=== PATIENT | female | born 1995 | race Asian ===

== ENCOUNTER 2017-05-07 01:27 | Emergency (ER) | payer OTHER ==
[2017-05-07] MEDS ORDERED: NS 0.9% 1000 ML* 2,000 ML IV ONE (01:32)
[2017-05-07] MEDS ORDERED: Ondansetron INJ* 2 MG/ML VIAL IV ONE (01:32)
[2017-05-07 02:32] LABS: Hematocrit 38 % (35-47); Mean Corpuscular HGB Conc 35 g/dl (31-36); Mean Corpuscular Hemoglobin 31 pg (27-31); Mean Corpuscular Volume 89 fL (80-97); Mean Platelet Volume 7 um3 (7.4-10.4); Red Blood Count 4.26 10^6/ul (4.0-5.4); Red Cell Distribution Width 13 % (10.5-15); White Blood Count 6.2 10^3/ul (3.5-10.8)
[2017-05-07 02:42] LABS: ALT 7 U/L (7-52); AST 11 U/L (13-39); Albumin 4.6 g/dL (3.2-5.2); Alkaline Phosphatase 40 U/L (34-104); Anion Gap 9 mmol/L (2-11); BUN/Creatinine Ratio 21.4 (8-20); Blood Urea Nitrogen 12 mg/dL (6-24); CO2 Carbon Dioxide 25 mmol/L (22-32); Calcium 8.8 mg/dL (8.6-10.3); Chloride 105 mmol/L (101-111); EGFR African American 174.1 (>60); EGFR Non-African American 135.4 (>60); Globulin 2.5 g/dL (2-4); Glucose 114 mg/dL (70-100); Potassium 3.5 mmol/L (3.5-5.0); Sodium 139 mmol/L (133-145); Total Protein 7.1 g/dL (6.4-8.9)
[2017-05-07 02:43] LABS: Alcohol 213 mg/dL (<10)
--- NOTE | 2017-05-07 04:52 | ED ---
Curt Maldonado Rebecca, scribed for Angel Edgar on 05/07/17 at 0149 . Substance Abuse/Use - HPI Summary HPI Summary: Pt is a 21 y/o F BIBA who comes to ED p/w EtOH intoxication with N/V. EMS report she was vomiting upon their arrival to the scene. Level 5 caveat due to EtOH intoxication. - History Of Current Complaint Stated Complaint: ALCOHOL CONSUMPTION Time Seen by Provider: 05/07/17 01:34 Hx Obtained From: EMS Hx From Patient Unobtainable Due To: Other - EtOH intoxication Ingestion History: Type/Name Of Drug - EtOH Overdose Characteristics: Oral Timing Of Abuse: Binge Use Associated Signs And Symptoms: Nausea, Vomiting - Allergies/Home Medications Allergies/Adverse Reactions: Allergies Allergy/AdvReac Type Severity Reaction Status Date / Time No Known Allergies Allergy Verified 05/07/17 02:16 Home Medications: Home Medications NK [No Home Medications Reported] 05/07/17 [History Confirmed 05/07/17] PMH/Surg Hx/FS Hx/Imm Hx Previously Healthy: No - Unknown - Level 5 caveat due to EtOH intoxication Infectious Disease History: Denies: Traveled Outside the [place] in Last 30 Days - Family History Known Family History: Positive: Unknown - Level 5 caveat due to EtOH intoxication - Social History Occupation: Student Alcohol Use: Presents tonight with EtOH intoxication Review of Systems - ROS Summary Review of Systems Summary: Level 5 caveat due to EtOH intoxication Positive: Vomiting, Nausea Positive: Other - EtOH intoxication All Other Systems Reviewed And Are Negative: No Physical Exam - Summary Physical Exam Summary: Level 5 caveat due to EtOH intoxication. Appearance: Well appearing, no pain distress Skin: warm, dry, reflects adequate perfusion Head/face: normal Eyes: EOMI, VETO ENT: normal Neck: supple, nontender Respiratory: CTA, breath sounds present Cardiovascular: RRR, pulses symmetrical Abdomen: vomiting Musculoskeletal: normal, strength/ROM intact Triage Information Reviewed: Yes Vital Signs On Initial Exam: Initial Vitals Temp Pulse Resp BP Pulse Ox 97.8 F 58 14 78/53 97 05/07/17 01:48 05/07/17 01:48 05/07/17 01:48 05/07/17 01:48 05/07/17 01:48 Vital Signs Reviewed: Yes Completion Of Physical Exam Limited Due To: Level 5 - EtOH intoxication Diagnostics - Laboratory Result Diagrams: 05/07/17 02:00 05/07/17 02:00 Lab Statement: Any lab studies that have been ordered have been reviewed, and results considered in the medical decision making process. Course/Dx - Course Assessment/Plan: Pt is a 21 y/o F BIBA who comes to ED p/w EtOH intoxication with N/V. EMS report she was vomiting upon their arrival to the scene. Level 5 caveat due to EtOH intoxication. Serum alcohol of 213. In the ED course, pt received fluids and Zofran. Pt will be D/C to home with Dx of alcohol intoxication and a follow up with her PCP. She understands and agrees. - Diagnoses Provider Diagnoses: Alcohol intoxication Discharge - Discharge Plan Condition: Stable Disposition: HOME Patient Education Materials: Alcohol Intoxication (ED) Referrals: [facility] [Primary Care Provider] - 3 Days The documentation as recorded by the Curt chang Rebecca accurately reflects the service I personally performed and the decisions made by , Angel Edgar.
[2017-05-07 04:58] VITALS: BP 108/55
== END 2017-05-07 04:58 | disposition home or self-care (01) ==
LOC: ED 01:27
DX: F10.129 Alcohol abuse with intoxication, unspecified (principal); Y90.7 Blood alcohol level of 200-239 mg/100 ml
CPT/HCPCS: 36415; 80053; 80320; 84702; 85025; 96360; 96374; 99284; G0480; J2405

== ENCOUNTER 2017-12-26 13:55 | Emergency (ER) | payer OTHER ==
[2017-12-26] MEDS ORDERED: Ondansetron INJ* 2 MG/ML VIAL IV ONE (14:27)
[2017-12-26] MEDS ORDERED: Morphine INJ* 2 MG/ML 1 ML CARPUJECT IV ONE (14:27)
[2017-12-26] MEDS ORDERED: Morphine VIAL* 4 MG/ML VIAL (1 ml vial) IV ONE (14:59)
[2017-12-26 15:26] LABS: ABS Basophils 0 10^3/ul (0-0.2); ABS Eosinophils 0 10^3/ul (0-0.6); ABS Lymphocytes 0.9 10^3/ul (1.0-4.8); ABS Monocytes 0.4 10^3/ul (0-0.8); ABS Neutrophils 7.8 10^3/ul (1.5-7.7); ABS Nucleated RBC 0 10^3/ul; Eosinophil % 0.2 % (0-6); Hematocrit 38 % (35-47); Hemoglobin 12.9 g/dl (12.0-16.0); Lymphocyte % 9.7 % (25-47); Mean Corpuscular HGB Conc 34 g/dl (31-36); Mean Corpuscular Hemoglobin 31 pg (27-31); Mean Corpuscular Volume 90 fL (80-97); Mean Platelet Volume 7.2 um3 (7.4-10.4); Nucleated Red Blood Cells % 0; Platelet Count 309 10^3/ul (150-450); Red Blood Count 4.22 10^6/ul (4.0-5.4); Red Cell Distribution Width 13 % (10.5-15); White Blood Count 9.1 10^3/ul (3.5-10.8)
--- NOTE | 2017-12-26 15:29 | RAD ---
Indication: Right lower quadrant pain. Graded compression sonography of the right lower quadrant was performed utilizing a high frequency linear transducer. Appendix is not visualized. There is no evidence of tubular fluid-filled structure to suggest appendicitis. No free fluid is identified. IMPRESSION: Appendix not visualized.
[2017-12-26] MEDS ORDERED: Iohexol 300* (CONTRAST) 10 ML SDV IV ONE (16:13)
--- NOTE | 2017-12-26 16:14 | ED ---
Abdominal Pain/Female - HPI Summary HPI Summary: Patient is an otherwise healthy 22-year-old female presenting to the ED with the chief complaint of right lower quadrant pain, acute onset at 9 AM, intermittent and was worse this afternoon. Endorses nausea and one episode of vomiting. Denies any diarrhea, constipation. Denies any fevers, sweats, chills. She has been feeling otherwise well, takes no medications. Last menstrual cycle 3 weeks ago, no chance of per patient. Denies any abdominal surgeries. Denies history of kidney stones. Denies any urinary symptoms. Denies history of ovarian cysts. Are not aggravated or alleviated with positioning or food intake. - History of Current Complaint Chief Complaint: EDAbdPain Stated Complaint: ABD PAIN Time Seen by Provider: 12/26/17 14:02 Hx Obtained From: Patient Hx Last Menstrual Period: 3 weeks ago ?: No Onset/Duration: Sudden Onset Timing: Constant Severity Initially: Moderate Severity Currently: Moderate Pain Intensity: 5 Pain Scale Used: 0-10 Numeric Location: Discrete At: RLQ Radiates: No Character: Sharp, Cramping Aggravating Factor(s): Nothing Alleviating Factor(s): Nothing Associated Signs and Symptoms: Positive: Negative - Risk Factors Ectopic Risk Factor: Negative Ovarian Torsion Risk Factor: Reproductive Age, Ovarian Cysts/Tumors Allergies/Adverse Reactions: Allergies Allergy/AdvReac Type Severity Reaction Status Date / Time No Known Allergies Allergy Verified 05/07/17 02:16 PMH/Surg Hx/FS Hx/Imm Hx Previously Healthy: Yes - Immunization History Hx Pertussis Vaccination: No Immunizations Up to Date: Unable to Obtain/Confirm Infectious Disease History: No Infectious Disease History: Denies: Traveled Outside the [place] in Last 30 Days - Family History Known Family History: Positive: Unknown - Level 5 caveat due to EtOH intoxication - Social History Occupation: Unemployed Lives: With Family Alcohol Use: None Hx Substance Use: No Substance Use Type: Reports: None Hx Tobacco Use: No Smoking Status (MU): Never Smoked Tobacco Review of Systems Constitutional: Negative Negative: Fever, Chills, Fatigue, Skin Diaphoresis ENT: Negative Cardiovascular: Negative Respiratory: Negative Positive: Abdominal Pain, Vomiting, Nausea. Negative: Diarrhea Genitourinary: Negative Positive: no symptoms reported, see HPI Negative: Arthralgia, Myalgia Negative: Rash, Bruising Negative: Headache Psychological: Normal All Other Systems Reviewed And Are Negative: Yes Physical Exam Triage Information Reviewed: Yes Vital Signs On Initial Exam: Initial Vitals Temp Pulse Resp BP Pulse Ox 98.2 F 50 12 111/84 100 12/26/17 14:07 12/26/17 14:07 12/26/17 14:07 12/26/17 14:07 12/26/17 14:07 Vital Signs Reviewed: Yes Appearance: Positive: Well-Appearing, Well-Nourished Skin: Positive: Warm, Skin Color Reflects Adequate Perfusion Head/Face: Positive: Normal Head/Face Inspection Eyes: Positive: EOMI, VETO, Conjunctiva Clear Neck: Positive: Supple, No Lymphadenopathy Respiratory/Lung Sounds: Positive: Clear to Auscultation, Breath Sounds Present Cardiovascular: Positive: Normal, RRR, Pulses are Symmetrical in both Upper and Lower Extremities Abdomen Description: Positive: Other: - Tenderness on deep palpation to the RLQ Bowel Sounds: Positive: Present Musculoskeletal: Positive: Strength/ROM Intact Neurological: Positive: Normal, Sensory/Motor Intact, Speech Normal Psychiatric: Positive: Normal, Affect/Mood Appropriate AVPU Assessment: Alert Diagnostics - Vital Signs Vital Signs Temp Pulse Resp BP Pulse Ox 12/26/17 15:12 18 12/26/17 14:07 98.2 F 50 12 111/84 100 - Laboratory Lab Results: Lab Results 12/26/17 12/26/17 12/26/17 Range/Units 15:21 15:21 15:21 WBC 9.1 (3.5-10.8) 10^3/ul RBC 4.22 (4.0-5.4) 10^6/ul Hgb 12.9 (12.0-16.0) g/dl Hct 38 (35-47) % MCV 90 (80-97) fL MCH 31 (27-31) pg MCHC 34 (31-36) g/dl RDW 13 (10.5-15) % Plt Count 309 (150-450) 10^3/ul MPV 7.2 L (7.4-10.4) um3 Neut % (Auto) 85.4 H (38-83) % Lymph % (Auto) 9.7 L (25-47) % [place] % (Auto) 4.3 (0-7) % Eos % (Auto) 0.2 (0-6) % Baso % (Auto) 0.4 (0-2) % Absolute Neuts (auto) 7.8 H (1.5-7.7) 10^3/ul Absolute Lymphs (auto) 0.9 L (1.0-4.8) 10^3/ul Absolute Monos (auto) 0.4 (0-0.8) 10^3/ul Absolute Eos (auto) 0 (0-0.6) 10^3/ul Absolute Basos (auto) 0 (0-0.2) 10^3/ul Absolute Nucleated RBC 0 10^3/ul Nucleated RBC % 0 Sodium 133 L (139-145) mmol/L Potassium 3.9 (3.5-5.0) mmol/L Chloride 99 L (101-111) mmol/L Carbon Dioxide 28 (22-32) mmol/L Anion Gap 6 (2-11) mmol/L BUN 11 (6-24) mg/dL Creatinine 0.65 (0.51-0.95) mg/dL Est GFR ( Amer) 145.3 (>60) Est GFR (Non-Af Amer) 113.0 (>60) BUN/Creatinine Ratio 16.9 (8-20) Glucose 116 H (70-100) mg/dL Lactic Acid 1.0 (0.5-2.0) mmol/L Calcium 9.3 (8.6-10.3) mg/dL Magnesium 2.1 (1.9-2.7) mg/dL Total Bilirubin 0.50 (0.2-1.0) mg/dL AST 14 (13-39) U/L ALT 11 (7-52) U/L Alkaline Phosphatase 44 (34-104) U/L C-Reactive Protein < 1.00 (< 5.00) mg/L Total Protein 7.1 (6.4-8.9) g/dL Albumin 4.4 (3.2-5.2) g/dL Globulin 2.7 (2-4) g/dL Albumin/Globulin Ratio 1.6 (1-3) Lipase 14 (11.0-82.0) U/L Beta HCG, Quant < 0.60 mIU/mL Result Diagrams: 12/26/17 15:21 12/26/17 15:21 Lab Statement: Any lab studies that have been ordered have been reviewed, and results considered in the medical decision making process. Abdominal Pain Fem Course/Dx - Course Course Of Treatment: Patient is evaluated for right lower quadrant pain acute onset at 9 AM, worsening throughout the afternoon, but has now improved on arrival. On physical examination, there is very little tenderness to the right lower quadrant. There is no tenderness to the right or left ovaries on deep palpation. Ultrasound of the appendix is obtained and appendix is not visualized. She continues to complain of pain to her right side. Dunn sign negative. Rovsing's negative. She complains of deep pain, not worse with inspiration. CT abdomen and pelvis obtained. IMPRESSION: The appendix is normal and air-filled without evidence of appendicitis. 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 The left kidney is normal. in location. Soft tissue mass posterior and lateral to the descending colon of uncertain etiology. 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 I discussed with the patient results of tests. I did not believe she has ovarian torsion as her symptoms have been intermittent and now resolved. Denies pelvic pain, denies fever or any UTI/hematuria. Also, patient rates pain at a 3 out of 10. Patient is given 2 mg morphine with good effect and complete resolution of symptoms. Denies chance of STDs or chance of . Denies any abdominal distention. Continues to deny constipation or diarrhea. Resting comfortably during course of treatment. Remains afebrile with stable vital signs. I have given her tramadol and follow up with gastro-for further evaluation of the possible duplication cyst. She is given Zofran for any nausea vomiting. She is okay with plan discharge. She states she will return for any worsening symptoms. - Diagnoses Provider Diagnoses: Abdominal pain Images - Images Full Body (No Head): 1 - pain on deep palpation Discharge - Sign-Out/Discharge Documenting (check all that apply): Discharge - Discharge Plan Condition: Stable Disposition: HOME Prescriptions: Ondansetron ODT TAB* [Zofran 4 MG Odt TAB*] 4 mg PO Q6H PRN #12 tab.odt MDD 4 PRN Reason: Nausea traMADol TAB* [Ultram*] 50 mg PO Q8H PRN #12 tab MDD 3 PRN Reason: Pain Patient Education Materials: Abdominal Pain (ED) Referrals: [facility] - Jimmie GONZALEZ [Primary Care Provider] - Michael Salamanca MD [Medical Doctor] - Additional Instructions: Please follow-up with gastroenterology Phone number, address is given Tramadol for any worsening pain If you develop pain despite the tramadol which is worsening, fevers or right lower quadrant pain, return to the ED immediately - Billing Disposition and Condition Condition: STABLE Disposition: HOME
--- NOTE | 2017-12-26 17:05 | RAD ---
Indication: Right lower quadrant pain, fever. Contrast: Administered 81.1 ml of OMNIPAQUE 300 mg/ml CT of the abdomen and pelvis was performed after oral and IV contrast administration. Coronal and sagittal reconstructed images were obtained. The lung bases demonstrate no pleural fluid, nodules or masses. Heart is of normal size without evidence of pericardial effusion. The liver is normal in size. No focal lesions or intrahepatic ductal dilatation is noted. The spleen is normal in size. The pancreas demonstrates no mass or pancreatic duct dilatation. Common duct is not dilated. The gallbladder demonstrates no calcified gallstones. No adrenal lesions are noted. The left kidney is normal in location. No focal masses or hydronephrosis is noted. There is a crossed unfused kidney in the left lower quadrant presumably the right kidney with ectopia. No hydronephrosis or masses are noted. No dilated loops of bowel are noted. The colon is filled with stool. The uterus and ovaries are unremarkable. The urinary bladder is unremarkable. The appendix is normal and thin-walled with air within the appendix. Posterior to the descending colon there is a structure that is low density and ovoid measuring 6.8 x 2.3 x 2.8 cm. This is of uncertain etiology although may represent a cecal duplication cyst. No evidence of bowel obstruction is noted. The uterus demonstrates the uterus to be tilted towards the left. The possibility of a fluid-filled endometrium should be considered. Urinary bladder is otherwise unremarkable. IMPRESSION: The appendix is normal and air-filled without evidence of appendicitis. 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 The left kidney is normal in location. Soft tissue mass posterior and lateral to the descending colon of uncertain etiology. 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
[2017-12-26 18:00] VITALS: BP 124/66
== END 2017-12-26 17:59 | disposition home or self-care (01) ==
LOC: ED 13:55
DX: R10.31 Right lower quadrant pain (principal)
CPT/HCPCS: 36415; 74177; 76705; 80053; 83605; 83690; 83735; 84702; 85025; 86140; 87040; 96374; 96375; 96376; 99283; J2270; Q9967